=== PATIENT | male | born 1960 | race Caucasian/White ===

== ENCOUNTER 2019-04-25 05:30 | Inpatient (IN) | payer OTHER ==
[~2019-04-25 05:30] MED LIST: ACETAMINOPHEN 325 MG TABLET ONE; ACETAMINOPHEN 325 MG TABLET PO PRN; CEFAZOLIN SODIUM 2 GM in DEXTROSE 5%-WATER 100 ML IV PRN; CELECOXIB 200 MG CAPSULE ONE; CELECOXIB 200 MG CAPSULE PO PRN; GABAPENTIN 100 MG CAPSULE ONE; GABAPENTIN 100 MG CAPSULE PO PRN; LACTATED RINGERS 1000 ML IV PRN; LIDOCAINE 0.5% INJ-PF (5 MG/ML) 50 ML SDV SUBCUT PRN; ONDANSETRON HCL INJ/PF 4 MG/2 ML SDV IV PRN; ONDANSETRON HCL INJ/PF 4 MG/2 ML SDV ONE; OXYCODONE HCL SR 10 MG TABLET PO ONE; OXYCODONE HCL SR 10 MG TABLET PO PRN; SCOPOLAMINE HYDROBROMIDE 1.5 MG PATCH.TD72 TD PRN; TRAMADOL HCL 50 MG TABLET ONE; TRAMADOL HCL 50 MG TABLET PO PRN; TRANEXAMIC ACID INJ/PF 1,000 MG/10 ML SDV IV PRN; VANCOMYCIN HCL 1,000 MG in DEXTROSE 5%-WATER 250 ML IV PRN
[2019-04-25] MEDS ORDERED: EPINEPHRINE INJ/PF 1 MG/1 ML AMPULE ONE (06:23)
[2019-04-25] MEDS ORDERED: ONDANSETRON HCL INJ/PF 4 MG/2 ML SDV ONE (06:24)
[2019-04-25] MEDS ORDERED: FENTANYL CITRATE INJ/PF 100 MCG/2 ML AMPUL ONE (06:24)
[2019-04-25] MEDS ORDERED: PROPOFOL INJ 200 MG/20 ML VIAL IV ONE (06:24)
[2019-04-25] MEDS ORDERED: MIDAZOLAM 2 MG/2 ML INJ ONE (06:24)
[2019-04-25] MEDS ORDERED: LIDOCAINE 0.5% INJ-PF (5 MG/ML) 50 ML SDV ONE (06:25)
[2019-04-25] MEDS ORDERED: TRANEXAMIC ACID INJ/PF 1,000 MG/10 ML SDV ONE ×2 (06:29→10:14)
[2019-04-25] MEDS ORDERED: SCOPOLAMINE HYDROBROMIDE 1.5 MG PATCH.TD72 ONE (07:07)
[2019-04-25] MEDS ORDERED: VANCOMYCIN HCL INJ 1000 MG VIAL ONE (07:11)
[2019-04-25] MEDS ORDERED: BUPIVACAINE HCL 0.25 % INJ/PF (2.5 MG/1 ML) 30 ML VIAL ONE (07:11)
[2019-04-25] MEDS ORDERED: GENTAMICIN SULFATE INJ 80 MG/2 ML VIAL ONE (07:12)
[2019-04-25] MEDS ORDERED: BACITRACIN INJ 50,000 UNIT VIAL ONE (07:12)
[2019-04-25] MEDS ORDERED: KETOROLAC TROMETHAMINE 60 MG/2 ML SDV ONE (07:12)
[2019-04-25] MEDS ORDERED: MORPHINE SULFATE 10 MG/ML INJ ONE (07:17)
[2019-04-25] MEDS ORDERED: GENTAMICIN SULFATE INJ 80 MG/2 ML VIAL IV ONE (08:26)
[2019-04-25] MEDS ORDERED: BACITRACIN INJ 50,000 UNIT VIAL IR ONE (08:26)
[2019-04-25] MEDS ORDERED: VANCOMYCIN HCL INJ 1000 MG VIAL IV ONE (08:27)
[2019-04-25] MEDS ORDERED: KETOROLAC TROMETHAMINE INJ/PF 30 MG/1 ML SDV INJ ONE (08:28)
[2019-04-25] MEDS ORDERED: BUPIVACAINE HCL 0.25 % INJ/PF (2.5 MG/1 ML) 30 ML VIAL INJ ONE (08:28)
[2019-04-25] MEDS ORDERED: PROMETHAZINE HCL INJ 25 MG/1 ML VIAL IV PRN ×2 (08:30)
[2019-04-25] MEDS ORDERED: DIPHENHYDRAMINE HCL 50 MG/ML VIAL IV PRN (08:30)
[2019-04-25] MEDS ORDERED: ONDANSETRON HCL INJ/PF 4 MG/2 ML SDV IV PRN (08:30)
[2019-04-25] MEDS ORDERED: MORPHINE SULFATE 10 MG/ML INJ IV PRN (08:30)
[2019-04-25] MEDS ORDERED: DEXAMETHASONE SOD PHOS INJ 10 MG/1 ML VIAL ONE (10:14)
--- NOTE | 2019-04-25 10:20 | RADIOLOGY REPORT (SQ) ---
EXAM DESCRIPTION: PELVIS AP COMPLETED DATE/TIME: 04/25/2019 10:04 am REASON FOR STUDY: post op M16.11 UNILATERAL PRIMARY OSTEOARTHRITIS, RIGHT HIP M16.12 UNILATERAL [place] IMARY OSTEOARTHRITIS, LEFT HIP COMPARISON: None. NUMBER OF VIEWS: One view TECHNIQUE: AP Pelvis LIMITATIONS: None. FINDINGS: MINERALIZATION: Osteopenia. HIPS: Status post right ABHI; the hardware is in anatomic alignment. There is no periprosthetic fract ure. There is severe osteoarthrosis of the contralateral femoroacetabular joint. PELVIS AND SACRUM: Intact. PUBIS AND ISCHIUM: The ilioischial and iliopectineal lines are intact. There is no diastasis of the pubic symphysis. LOWER LUMBAR SPINE: Findings of degenerative spondylosis at L4-5 and L5-S1. SOFT TISSUES: The subcutaneous emphysema centered around the right ABHI is expected in the immediate p ostoperative period. OTHER: Phleboliths. IMPRESSION: Status post right ABHI with expected postoperative findings as detailed above. COMMENT: Pelvic fractures are often occult on plain radiographs. If strong clinical suspicion for f racture, recommend CT or MR. TECHNICAL DOCUMENTATION: JOB ID: [id number]- All Rights Reserved Reading location - IP/workstation name: [email or web address]
--- NOTE | 2019-04-25 10:58 | Operative Report ---
Operative Report DATE OF SURGERY: 04/25/19 PREOPERATIVE DIAGNOSIS: Right hip avascular necrosis POSTOPERATIVE DIAGNOSIS: Right hip avascular necrosis OPERATION: Right total hip arthroplasty SURGEON: DONALD DESOUZA JR ANESTHESIA: Spinal COMPLICATIONS: None ESTIMATED BLOOD LOSS: 150 cc PROCEDURE: BRIEF HISTORY: 58year old male with right hip avascular necrosis status post early collapse hip, which has failed conservative treatment and has elected for a total hip arthroplasty. He was having severe difficulty ambulating leading to loss of function, inability to perform ADLs, and a decreased quality of life due to his rapidly increasing dependence on assistive devices, now using a rolling walker. Risks include but are not limited to bleeding, infection, anesthesia, , injury to nerve or vessel, pain, scar, leg length inequality, dislocation, future surgery, and blood clots. Patient read through the pre-op counseling form and signed and solicited for surgery on their right hip. OPERATIVE PROCEDURE: Patient was brought to the operating room on and underwent spinal anesthesia. 2 grams of Ancef and 1 g vancomycin was given. After proper anesthesia was obtained, patient was positioned, padded, prepped, and draped in the usual sterile fashion on the operating room table. Appropriate time out was performed. A anterior approach to the hip was undertaken with meticulous hemostasis. The femoral neck was cut in line with the femoral broach and the femoral head was removed. The acetabulum was then exposed with three retractors in an atraumatic fashion. Soft tissue and osteophytes were removed. Medialization reaming was performed followed by anatomic reaming up to accept a 52 mm acetabulum. The 52 mm acetabulum was impacted into correct position and stability checked with Silvana test. A 36 standard liner was impacted into the shell with good stability. Potential impinging osteophytes were removed. Attention was then directed toward the femur, which was exposed with two retractors in an atraumatic fashion. corner cutter, lateralization rasping and then broaching up to accept a 17 femur. With a lateral offset neck and a standard head, stability was good in flexion and extension with equal leg lengths. The real 17 lateral offset femur was impacted into a copiously irrigated femoral canal. A 36 standard mm head was impacted on a clean dry femoral taper. The hip was irrigated and reduced, further irrigation with antibiotic solution, betadine solution, then antibiotic solution. Bleeders were coagulated with bovie cautery. 1 g of vancomycin powder was applied intra- articularly the fascia was then closed with number 2 Stratofix; the subcutaneous tissue closed with interrupted 2-0 Vicryl then running 3-0 monocryl subcuticular. Dermabond skin glue was applied followd by a silver dressing. All needle sponge and instrument counts were correct. Patient was awakened from sedation anesthesia and taken to recovery room in good condition. Thank you, Donald Desouza, DO
--- NOTE | 2019-04-25 11:43 | RADIOLOGY REPORT (SQ) ---
EXAM DESCRIPTION: HIP IN OPERATING RM; NO CHG FLUORO COMPLETED DATE/TIME: 04/25/2019 10:09 am REASON FOR STUDY: RIGHT HIP ARTHROPLASTY ASST WITH FLUORO IN OR M16.11 UNILATERAL PRIMARY OSTEOARTH RITIS, RIGHT HIP M16.12 UNILATERAL PRIMARY OSTEOARTHRITIS, LEFT HIP COMPARISON: None. FLUOROSCOPY TIME: Less than 0.1 minute. 2 images saved to PACS. TECHNIQUE: Intra-operative images acquired during surgical procedure to evaluate progress. NUMBER OF IMAGES: 2 images. LIMITATIONS: None. FINDINGS: Images of the hip acquired during procedure. IMPRESSION: IMAGE(S) OBTAINED DURING PROCEDURE. COMMENT: Quality ID [id number]: Final reports for procedures using fluoroscopy that document radiation exp osure indices, or exposure time and number of fluorographic images (if radiation exposure indices are not available) Please consult full operative report of the attending physician for description of the procedure. TECHNICAL DOCUMENTATION: JOB ID: [id number] [employer]- All Rights Reserved Reading location - IP/workstation name: [email or web address]
--- NOTE | 2019-04-25 11:43 | RADIOLOGY REPORT (SQ) ---
EXAM DESCRIPTION: HIP IN OPERATING RM; NO CHG FLUORO COMPLETED DATE/TIME: 04/25/2019 10:09 am REASON FOR STUDY: RIGHT HIP ARTHROPLASTY ASST WITH FLUORO IN OR M16.11 UNILATERAL PRIMARY OSTEOARTH RITIS, RIGHT HIP M16.12 UNILATERAL PRIMARY OSTEOARTHRITIS, LEFT HIP COMPARISON: None. FLUOROSCOPY TIME: Less than 0.1 minute. 2 images saved to PACS. TECHNIQUE: Intra-operative images acquired during surgical procedure to evaluate progress. NUMBER OF IMAGES: 2 images. LIMITATIONS: None. FINDINGS: Images of the hip acquired during procedure. IMPRESSION: IMAGE(S) OBTAINED DURING PROCEDURE. COMMENT: Quality ID 145: Final reports for procedures using fluoroscopy that document radiation exp osure indices, or exposure time and number of fluorographic images (if radiation exposure indices are not available) Please consult full operative report of the attending physician for description of the procedure. TECHNICAL DOCUMENTATION: JOB ID: [id number] [employer]- All Rights Reserved Reading location - IP/workstation name: [email or web address]
[2019-04-25] MEDS ORDERED: (PENDING PHARMACY ID) (Trazodone Hcl [Trazodone Hcl] 300 MG) PO PRN (15:21)
[2019-04-25] MEDS ORDERED: ALBUTEROL SULFATE HFA (90 MCG/PUFF) 200 PUFF/8.5 GM MDI IH PRN (15:21)
[2019-04-25] MEDS ORDERED: (PENDING PHARMACY ID) (Mometasone Furoate [Nasonex] 2 SPRAY) NAREB PRN (15:21)
[2019-04-25] MEDS ORDERED: MONTELUKAST SODIUM 10 MG TABLET PO PRN (15:21)
[2019-04-25] MEDS ORDERED: (PENDING PHARMACY ID) (Alprazolam [Alprazolam] 1 MG) PO PRN (15:21)
[2019-04-25] MEDS ORDERED: DEXTROSE 40% GEL 15 GM TUBE PO PRN ×2 (15:27)
[2019-04-25] MEDS ORDERED: DEXTROSE 50%-WATER 25 GM/50 ML DISP.SYRIN IV PRN ×2 (15:27)
[2019-04-25] MEDS ORDERED: GLUCAGON,HUMAN RECOMB 1 MG INJ IM PRN (15:27)
--- NOTE | 2019-04-25 15:27 | PDOC CONSULTATION ---
Consultation Consult Date: 04/25/19 Attending physician:: LAUREN DESOUZA JR Provider Consulted: MITESH ZAZUETA JR Consult reason:: Medical management, pre and post operatively History of Present Illness Admission Date/PCP: 04/25/19 05:30 CHAYO LUNA MD History of Present Illness: JEFRY CORLEY is a 58 year old male who we were consulted on for medical management. Patient had a right total hip arthroplasty today secondary to avascular necrosis. Patient is scheduled to have his left hip done in 48 hours for the same diagnosis. Patient states that in May 2018 he started having back pain and what he thought was "sciatica". Patient underwent epidural lumbar injections for degenerative disc disease and back pain. Somewhere along the way recently within the last 30 days or so x-rays revealed his hips, and it was determined that he had bilateral avascular necrosis. This may have even been done on the basketball scout film or during a CT-guided procedure, where the hip was visualized. He was brought into the hospital today by orthopedics where he underwent a right total hip arthroplasty with good success. As stated above patient is scheduled for his left hip to be done on 48 hours from now.. Patient has returned from surgery back in his room with his fiance. Patient is sitting up in bed eating lunch appears to be in no distress. Patient states his only other medical history involves hyperlipidemia. However in reviewing his chart and his home medications, appears as though he is on medicine for either anxiety and/or depression. He denies diabetes, hypertension, coronary artery disease, [place]. States he does not smoke cigarettes and only rarely drinks alcohol. Past Medical History Cardiac Medical History: Reports: Hyperlipidema Denies: Atrial Fibrillation, Congestive Heart Failure, Coronary Artery Disease, Myocardial Infarction, Hypertension, Peripheral Vascular Disease, Pulmonary Embolism, Heart Murmur Pulmonary Medical History: Reports: Chronic Obstructive Pulmonary Disease (COPD) Denies: Asthma, Bronchitis, Pneumonia, Respiratory Failure, Sleep Apnea, Tuberculosis Neurological Medical History: Denies: Seizures Endocrine Medical History: Denies: Hyperthyroidism, Hypothyroidism Renal/ Medical History: Denies: End Stage Renal Disease Malignancy Medical History: Denies: Lung Cancer GI Medical History: Reports: Gastroesophageal Reflux Disease Denies: Crohn's Disease, Hiatal Hernia Musculoskeltal Medical History: Reports: Arthritis Denies: Fibromyalgia Psychiatric Medical History: Reports: Depression Denies: Bipolar Disorder, Post Traumatic Stress Disorder Hematology: Denies: Anemia Past Surgical History Past Surgical History: Reports: Herniorrhaphy Denies: Appendectomy, Cholecystectomy, Colostomy, Coronary Artery Bypass Graft, Gastric Bypass Surgery, Pacemaker, Tonsillectomy Social History Smoking Status: Former Smoker Hx Recreational Drug Use: No Hx Prescription Drug Abuse: No - Advance Directive Resuscitation Status: Full Code Family History Parental Family History Reviewed: No Children Family History Reviewed: No Sibling(s) Family History Reviewed.: No Medication/Allergy Home Medications: Albuterol Sulfate [Proair HFA Inhalation Aerosol 8.5 gm MDI] 2 puff IN QIDP PRN 04/18/19 Alprazolam 1 mg PO Q8HP PRN 04/18/19 Atorvastatin Calcium [Lipitor 80 mg Tablet] 80 mg PO DAILY 04/18/19 Bupropion HCl [Wellbutrin Xl 300mg 24hr Tablet] 300 mg PO DAILY 04/18/19 Montelukast Sodium [Singulair] 10 mg PO HSP PRN 04/18/19 Tamsulosin HCl [Flomax] 0.4 mg PO DAILYP PRN 04/18/19 Trazodone HCl 300 mg PO HSP PRN 04/18/19 Buprenorphine HCl [Belbuca] 300 mcg BUCCAL DAILY 04/19/19 Cholecalciferol (Vitamin D3) [Vitamin D3 2000 unit Tablet] 2,000 unit PO DAILY 04/19/19 Clobetasol Propionate [Temovate 0.05% Cream 15 gm] 1 dose TOP BID 04/19/19 Diclofenac Sodium [Diclofenac Sodium ER] 100 mg PO DAILYP PRN 04/19/19 Lidocaine [Lidoderm 5% (700 mg) Transdermal Patch] 1 patch TOP DAILYP PRN 04/19/19 Mometasone Furoate [Nasonex] 2 spray NAREB DAILYP PRN 04/19/19 Naltrexone HCl/Bupropion HCl [Contrave ER 8-90 mg Tablet] 8 - 90 mg PO DAILY 04/19/19 Naproxen [Naprosyn] 500 mg PO BIDP PRN 04/19/19 [place]-3 Fatty Acids/Fish Oil [Fish Oil 1,000 mg Capsule] 1,000 mg PO DAILY 04/19/19 Tadalafil [Cialis] 5 mg PO DAILY 04/19/19 Tapentadol HCl [Nucynta] 100 mg PO Q8HP PRN 04/25/19 Allergies/Adverse Reactions: fentanyl Allergy (Verified 04/25/19 06:37) Hallucinations Review of Systems Constitutional: ABSENT: chills, fever(s), headache(s), weight gain, weight loss Cardiovascular: ABSENT: chest pain, dyspnea on exertion, edema, orthropnea, palpitations Respiratory: ABSENT: cough, hemoptysis Neurological: ABSENT: abnormal gait, abnormal speech, confusion, dizziness, focal weakness, syncope Psychiatric: ABSENT: anxiety, depression, homidical ideation, suicidal ideation Physical Exam Vital Signs: Temp Pulse Resp BP Pulse Ox 97.2 F 62 18 117/74 97 04/25/19 13:53 04/25/19 13:53 04/25/19 13:53 04/25/19 13:53 04/25/19 13:53 Intake & Output 04/24/19 04/25/19 04/26/19 06:59 06:59 06:59 Intake Total 0 2200 Output Total 75 Balance 0 2125 General appearance: PRESENT: no acute distress, well-developed, well-nourished, other - Sitting up in bed eating a sandwich with no complaints Respiratory exam: PRESENT: clear to auscultation trip. ABSENT: rales, rhonchi, wheezes Cardiovascular exam: PRESENT: RRR. ABSENT: diastolic murmur, rubs, systolic murmur Extremities exam: PRESENT: other - Deferred to orthopedics Neurological exam: PRESENT: alert, awake, oriented to person, oriented to place, oriented to time, oriented to situation Psychiatric exam: PRESENT: appropriate affect, normal mood. ABSENT: homicidal ideation, suicidal ideation Results Laboratory Results: 04/25/19 06:15 Blood Type A NEGATIVE Antibody Screen NEGATIVE Impressions: Fluoroscopy 04/25/19 00:00 IMPRESSION: IMAGE(S) OBTAINED DURING PROCEDURE. Hip X-Ray 04/25/19 00:00 IMPRESSION: IMAGE(S) OBTAINED DURING PROCEDURE. Pelvis X-Ray 04/25/19 00:00 IMPRESSION: Status post right ABHI with expected postoperative findings as detailed above. Assessment and Plan - Diagnosis (1) Avascular necrosis of bones of both hips Is this a current diagnosis for this admission?: Yes (2) History of total right hip arthroplasty Is this a current diagnosis for this admission?: Yes (3) Mixed anxiety and depressive disorder Is this a current diagnosis for this admission?: Yes (4) Hyperlipidemia Is this a current diagnosis for this admission?: Yes - Plan Summary Summary: 04/25/2019 I have ordered his medications for anxiety and depression to be given, as these medicines should not be stopped abruptly. And I do not think they will interfere with his surgical care. I did hold his pain medications as well as his Flomax, as I think the surgeon should treat his pain and add as needed basis, and temporarily we can control his blood pressure with the PRN dosage of hydralazine. I have also held his nonsteroidal anti-inflammatory drugs due to the slight chance of increased bleeding postop. I will prophylactically add a insulin sliding scale regimen as well as a blood pressure parameter regimen. Thank you for this consult - Time Time Spent with patient: 35 or more minutes
[2019-04-25] MEDS ORDERED: HYDRALAZINE HCL INJ/PF 20 MG/1 ML SDV IV PRN (15:28)
[2019-04-25] MEDS ORDERED: ALPRAZOLAM 0.5 MG TABLET PO PRN (15:33)
[2019-04-25] MEDS ORDERED: FLUTICASONE NASAL SPRAY 50 MCG/SPRY 120 SPRAY/16 GM NAREB PRN (15:36)
[2019-04-25] MEDS ORDERED: OXYCODONE HCL IR 5 MG TABLET PO PRN ×2 (17:53→17:54)
[2019-04-25] MEDS ORDERED: TRAMADOL HCL 50 MG TABLET PO PRN (17:55)
[2019-04-25] MEDS ORDERED: ZOLPIDEM TARTRATE 5 MG TABLET PO PRN (17:58)
[2019-04-25] MEDS ORDERED: DIPHENHYDRAMINE HCL 25 MG CAPSULE PO PRN (17:58)
[2019-04-25] MEDS ORDERED: BUPROPION HCL 75 MG TABLET PO SCH (18:00)
[2019-04-25] MEDS ORDERED: CLOBETASOL PROPIONATE 0.05% CREAM 15 GM TOP SCH (18:00)
[2019-04-25] MEDS ORDERED: DOCUSATE SODIUM 100 MG CAPSULE PO PRN (18:01)
[2019-04-25] MEDS ORDERED: ONDANSETRON 4 MG TAB.RAPDIS PO PRN (18:02)
[2019-04-25] MEDS ORDERED: PANTOPRAZOLE SODIUM 20 MG TABLET.DR PO ONE (18:30)
[2019-04-25] MEDS: INSULIN LISPRO 100 UNIT/ML 3 ML VIAL SUBCUT SCH ×2 (18:51→21:40)
[2019-04-25] MEDS: CEFAZOLIN SODIUM 2 GM in DEXTROSE 5%-WATER 100 ML IV SCH (21:37)
[2019-04-25] MEDS: GABAPENTIN 100 MG CAPSULE PO SCH (21:41)
[2019-04-25] MEDS: ACETAMINOPHEN 325 MG TABLET PO SCH (21:42)
[2019-04-25] MEDS: KETOROLAC TROMETHAMINE INJ/PF 30 MG/1 ML SDV IV SCH (21:42)
[2019-04-25] MEDS: ATORVASTATIN CALCIUM 80 MG TABLET PO SCH (21:43)
[2019-04-25] MEDS: MORPHINE SULFATE 10 MG/ML INJ IV PRN (22:39)
[2019-04-25] MEDS: NORMAL SALINE 1000 ML 1,000 ML IV PRN (22:43)
[2019-04-26] MEDS: MORPHINE SULFATE 10 MG/ML INJ IV PRN (03:04)
[2019-04-26] MEDS: KETOROLAC TROMETHAMINE INJ/PF 30 MG/1 ML SDV IV SCH ×3 (06:00→21:39)
[2019-04-26] MEDS: ACETAMINOPHEN 325 MG TABLET PO SCH ×3 (06:00→21:38)
[2019-04-26] MEDS: CEFAZOLIN SODIUM 2 GM in DEXTROSE 5%-WATER 100 ML IV SCH (06:00)
[2019-04-26] MEDS ORDERED: DEXAMETHASONE SOD PHOS INJ 10 MG/1 ML VIAL IV ONE (08:00)
--- NOTE | 2019-04-26 08:06 | PDOC PROGRESS REPORT ---
Subjective Progress Note for:: 04/26/19 Subjective:: He is doing well this AM but does report pain. Pain was controlled until last night and has progressed. There was an issue with his medication orders being implemented by pharmacy that has been addressed this AM. He is doing well otherwise without new symptoms or event overnight. Reason For Visit: UNILATERAL PRIMARY OSTEOARTHRITIS, RIGHT HIP Physical Exam Vital Signs: Temp Pulse Resp BP Pulse Ox 98.0 F 78 17 121/76 99 04/25/19 22:00 04/25/19 22:00 04/25/19 22:00 04/25/19 22:00 04/25/19 22:00 Intake & Output 04/25/19 04/26/19 04/27/19 06:59 06:59 06:59 Intake Total 0 3290 Output Total 1175 Balance 0 2115 Physical Exam: General appearance: PRESENT: no acute distress, cooperative, well-nourished Head exam: PRESENT: atraumatic, normocephalic Eye exam: PRESENT: EOMI Ear exam: PRESENT: normal external ear exam Mouth exam: PRESENT: neck supple Neck exam: ABSENT: tracheal deviation Respiratory exam: PRESENT: symmetrical, unlabored. ABSENT: accessory muscle use, wheezes Pulses: PRESENT: normal radial pulses, normal dorsalis pedis pul Vascular exam: PRESENT: normal capillary refill GI/Abdominal exam: ABSENT: distended, firm Extremities exam: PRESENT: full ROM of bilateral shoulders, elbows wrists, knees, hips and ankles without pain Musculoskeletal exam: PRESENT: full ROM, normal inspection of all 4 extremities aside from that noted below. Neurological exam: PRESENT: alert, awake, oriented to person, oriented to place, oriented to time Psychiatric exam: PRESENT: appropriate affect. ABSENT: agitated Focused psych exam: ABSENT: catatonic Skin exam: PRESENT: intact. ABSENT: dry All as above aside from that noted in the HPI and the following: RIght lower extremity -Pulses 2+ distally -Compartments soft -Wound clean dry and intact no drainage in appropriate swelling for postop day -Sensation grossly intact to L3-4-5 S1 -Motor grossly intact to EHL TA gastroc and quad - Able to perform quad extension and elevate heel off of bed. Results Impressions: Fluoroscopy 04/25/19 00:00 IMPRESSION: IMAGE(S) OBTAINED DURING PROCEDURE. Hip X-Ray 04/25/19 00:00 IMPRESSION: IMAGE(S) OBTAINED DURING PROCEDURE. Pelvis X-Ray 04/25/19 00:00 IMPRESSION: Status post right ABHI with expected postoperative findings as detailed above. Assessment & Plan - Diagnosis (1) Avascular necrosis of bones of both hips Is this a current diagnosis for this admission?: Yes (2) History of total right hip arthroplasty Is this a current diagnosis for this admission?: Yes Plan: - Due to the severity of pre-operative pain and the rapid progression of his hip disease and debility, we are planning for left ABHI tomorrow. - I greatly appreciate medicine recommendations. He did have elevated blood glucose likely due to stress response, pain, and post op dose of decadron. Will hold insulin sliding scale for now. - Will order H/H for eval prior to OR tomorrow - NPO at midnight tonight. - Recommend 2 doses of Ancef postoperatively q 8 hours to complete 24 hours perioperatively -Weightbearing as tolerated, no precautions, encourage out of bed EMANUEL for ADL training - PT/OT -Recommend aspirin 325 daily for DVT prophylaxis for 6 weeks -Recommend multimodal pain management to avoid excessive narcotics, including gabapentin, tramadol, Toradol, acetaminophen. - Dressing should not be removed for 7 to 10 days until seen in the office -May shower with the dressing intact, if it starts to come off she should not get the incision wet. -I would like to follow the patient my office within the next 7 to [address] [place] [address]. in [place] office #: [phone] - Time Time Spent with patient: Less than 15 minutes
[2019-04-26 08:29] LABS: ABSOLUTE LYMPHOCYTES (AUTO) 1.5 10^3/uL (0.5-4.7); ABSOLUTE MONOCYTES (AUTO) 0.8 10^3/uL (0.1-1.4); ABSOLUTE NEUT (AUTO) 7.9 10^3/uL (1.7-8.2); BASOPHILS % (AUTO) 0.4 % (0-2); EOSINOPHILS % (AUTO) 0.1 % (0-6); HEMATOCRIT 35.5 % (37.9-51.0); LYMPHOCYTES % (AUTO) 14.4 % (13-45); MEAN CORPUSCULAR HEMOGLOBIN 28.9 pg (27.0-33.4); MEAN CORPUSCULAR HGB CONC 33.7 g/dL (32.0-36.0); MEAN CORPUSCULAR VOLUME 86 fl (80-97); MONOCYTES % (AUTO) 7.4 % (3-13); PLATELET COUNT 226 10^3/uL (150-450); RED BLOOD COUNT 4.14 10^6/uL (4.35-5.55); RED CELL DISTRIBUTION WIDTH 14.2 % (11.5-14.0); SEGMENTED NEUTROPHILS % (AUTO) 77.7 % (42-78); TOTAL CELLS COUNTED % (AUTO) 100 %; WHITE BLOOD COUNT 10.2 10^3/uL (4.0-10.5)
[2019-04-26] MEDS: INSULIN LISPRO 100 UNIT/ML 3 ML VIAL SUBCUT SCH ×3 (08:41→16:00)
[2019-04-26] MEDS: HYDROMORPHONE HCL 2 MG TABLET PO PRN ×2 (08:56→20:05)
[2019-04-26 09:00] LABS: ALBUMIN 3.1 g/dL (3.5-5.0); ALKALINE PHOSPHATASE 73 U/L (38-126); ANION GAP 8 (5-19); ASPARTATE AMINO TRANSFERASE 22 U/L (17-59); BILIRUBIN,DIRECT 0.1 mg/dL (0.0-0.4); BILIRUBIN,TOTAL 0.3 mg/dL (0.2-1.3); BLOOD UREA NITROGEN 11 mg/dL (7-20); CALCIUM 9.1 mg/dL (8.4-10.2); CARBON DIOXIDE 28 mmol/L (22-30); CHLORIDE 102 mmol/L (98-107); GLUCOSE 129 mg/dL (75-110); POTASSIUM 4.3 mmol/L (3.6-5.0); TOTAL PROTEIN 5.9 g/dL (6.3-8.2)
[2019-04-26] MEDS ORDERED: (PENDING PHARMACY ID) (Cholecalciferol (Vitamin D3) [Vitamin D3 2000 Unit Tablet] 2,000 UN PO SCH (10:00)
--- NOTE | 2019-04-26 10:20 | PDOC PROGRESS REPORT ---
Subjective Progress Note for:: 04/26/19 Reason For Visit: UNILATERAL PRIMARY OSTEOARTHRITIS, RIGHT HIP 04/26/2019 Lateral avascular necrosis with a completed right hip revision and scheduled left hip for tomorrow Physical Exam Vital Signs: Temp Pulse Resp BP Pulse Ox 98.1 F 80 14 101/61 96 04/26/19 07:39 04/26/19 07:39 04/26/19 07:39 04/26/19 07:39 04/26/19 07:39 Intake & Output 04/25/19 04/26/19 04/27/19 06:59 06:59 06:59 Intake Total 0 3290 Output Total 1175 Balance 0 2115 General appearance: PRESENT: no acute distress, other - Sitting up in a chair at bedside, speaking in full sentences Respiratory exam: PRESENT: clear to auscultation trip. ABSENT: rales, rhonchi, wheezes Cardiovascular exam: PRESENT: RRR. ABSENT: diastolic murmur, rubs, systolic murmur Neurological exam: PRESENT: alert, awake, oriented to person, oriented to place, oriented to time, oriented to situation Psychiatric exam: PRESENT: appropriate affect, normal mood. ABSENT: homicidal ideation, suicidal ideation Results Laboratory Results: 04/26/19 08:05 04/26/19 08:05 04/26/19 04/26/19 08:05 08:05 WBC 10.2 RBC 4.14 L Hgb 12.0 L Hct 35.5 L MCV 86 MCH 28.9 MCHC 33.7 RDW 14.2 H Plt Count 226 Seg Neutrophils % 77.7 Sodium 138.3 Potassium 4.3 Chloride 102 Carbon Dioxide 28 Anion Gap 8 BUN 11 Creatinine 0.84 Est GFR ( Amer) > 60 Glucose 129 H Calcium 9.1 Total Bilirubin 0.3 AST 22 Alkaline Phosphatase 73 Total Protein 5.9 L Albumin 3.1 L Impressions: Fluoroscopy 04/25/19 00:00 IMPRESSION: IMAGE(S) OBTAINED DURING PROCEDURE. Hip X-Ray 04/25/19 00:00 IMPRESSION: IMAGE(S) OBTAINED DURING PROCEDURE. Pelvis X-Ray 04/25/19 00:00 IMPRESSION: Status post right ABHI with expected postoperative findings as detailed above. Assessment and Plan - Diagnosis (1) Avascular necrosis of bones of both hips Is this a current diagnosis for this admission?: Yes (2) History of total right hip arthroplasty Is this a current diagnosis for this admission?: Yes (3) Mixed anxiety and depressive disorder Is this a current diagnosis for this admission?: Yes (4) Hyperlipidemia Is this a current diagnosis for this admission?: Yes - Plan Summary Summary: 04/25/2019 I have ordered his medications for anxiety and depression to be given, as these medicines should not be stopped abruptly. And I do not think they will interfere with his surgical care. I did hold his pain medications as well as his Flomax, as I think the surgeon should treat his pain and add as needed basis, and temporarily we can control his blood pressure with the PRN dosage of hydralazine. I have also held his nonsteroidal anti-inflammatory drugs due to the slight chance of increased bleeding postop. I will prophylactically add a insulin sliding scale regimen as well as a blood pressure parameter regimen. Thank you for this consult 04/26/2019 Patient is medically stable temperature 98.1 pulse of 80 blood pressure 101/61 O2 sat 96% on room air Pain this morning is a 2/5. Had some postoperative pain last night as to be expected but this is being managed Labs all appear stable Anticipate no delays with surgery tomorrow - Time Time Spent with patient: 15-24 minutes
[2019-04-26] MEDS: POLYETHYLENE GLYCOL 3350 POWDER 17 GM/1 PACKET PO SCH (11:06)
[2019-04-26] MEDS: ASPIRIN 325 MG TABLET PO SCH (11:06)
[2019-04-26] MEDS: CHOLECALCIFEROL (D3) 1,000 UNIT (25 MCG) TABLET PO SCH (11:07)
[2019-04-26] MEDS: GABAPENTIN 100 MG CAPSULE PO SCH ×2 (11:07→21:39)
[2019-04-26] MEDS: BUPROPION HCL 75 MG TABLET PO SCH (11:08)
[2019-04-26] MEDS: CELECOXIB 200 MG CAPSULE PO SCH (11:11)
[2019-04-26] MEDS ORDERED: MAGNESIUM HYDROXIDE SUSP 30 ML UDCUP PO PRN (17:21)
[2019-04-26] MEDS ORDERED: MAG HYDROX/AL HYDROX/SIMETH SUSP 30 ML UDCUP PO PRN (18:38)
[2019-04-26] MEDS: ATORVASTATIN CALCIUM 80 MG TABLET PO SCH (21:38)
[2019-04-27] MEDS: TRAZODONE HCL 50 MG TABLET PO PRN (00:43)
[2019-04-27] MEDS: NORMAL SALINE 1000 ML 1,000 ML IV PRN ×3 (05:53→21:34)
[2019-04-27] MEDS: ACETAMINOPHEN 325 MG TABLET PO SCH ×3 (06:30→21:29)
[2019-04-27] MEDS ORDERED: GENTAMICIN SULFATE INJ 80 MG/2 ML VIAL ONE (07:34)
[2019-04-27] MEDS ORDERED: VANCOMYCIN HCL INJ 1000 MG VIAL ONE (07:34)
[2019-04-27] MEDS ORDERED: BUPIVACAINE HCL 0.25 % INJ/PF (2.5 MG/1 ML) 30 ML VIAL ONE (07:35)
[2019-04-27] MEDS ORDERED: BACITRACIN INJ 50,000 UNIT VIAL ONE (07:35)
[2019-04-27] MEDS ORDERED: DEXAMETHASONE SOD PHOSPHATE INJ 4 MG/1 ML VIAL ONE (08:00)
[2019-04-27] MEDS ORDERED: PHENYLEPHRINE HCL INJ/PF 10 MG/1 ML SDV ONE (08:00)
[2019-04-27] MEDS ORDERED: ONDANSETRON HCL INJ/PF 4 MG/2 ML SDV ONE (08:00)
[2019-04-27] MEDS ORDERED: MIDAZOLAM 2 MG/2 ML INJ ONE (08:11)
[2019-04-27] MEDS ORDERED: FENTANYL CITRATE INJ/PF 250 MCG/5 ML AMPULE ONE (08:11)
[2019-04-27] MEDS ORDERED: PROPOFOL INJ 200 MG/20 ML VIAL IV ONE ×3 (08:12→11:49)
[2019-04-27] MEDS ORDERED: EPINEPHRINE INJ/PF 1 MG/1 ML AMPULE ONE (08:17)
[2019-04-27] MEDS ORDERED: VANCOMYCIN HCL INJ 500 MG VIAL ONE (08:46)
[2019-04-27] MEDS ORDERED: CEFAZOLIN INJ 1 GM VIAL ONE (08:46)
[2019-04-27] MEDS ORDERED: OXYCODONE HCL SR 10 MG TABLET PO ONE (08:46)
[2019-04-27] MEDS ORDERED: TRANEXAMIC ACID INJ/PF 1,000 MG/10 ML SDV ONE (08:47)
[2019-04-27] MEDS ORDERED: ACETAMINOPHEN 325 MG TABLET ONE (08:48)
[2019-04-27] MEDS ORDERED: TRAMADOL HCL 50 MG TABLET ONE (08:48)
[2019-04-27] MEDS ORDERED: CELECOXIB 200 MG CAPSULE ONE (08:48)
[2019-04-27] MEDS ORDERED: GABAPENTIN 100 MG CAPSULE ONE (08:48)
[2019-04-27] MEDS: GABAPENTIN 100 MG CAPSULE PO SCH ×2 (08:59→21:29)
[2019-04-27] MEDS: POLYETHYLENE GLYCOL 3350 POWDER 17 GM/1 PACKET PO SCH (08:59)
[2019-04-27] MEDS: CHOLECALCIFEROL (D3) 1,000 UNIT (25 MCG) TABLET PO SCH (08:59)
[2019-04-27] MEDS: CELECOXIB 200 MG CAPSULE PO SCH (08:59)
[2019-04-27] MEDS: BUPROPION HCL 75 MG TABLET PO SCH (08:59)
[2019-04-27] MEDS: ASPIRIN 325 MG TABLET PO SCH (08:59)
[2019-04-27] MEDS ORDERED: OXYCODONE HCL IR 5 MG TABLET PO PRN ×4 (09:26→10:00)
[2019-04-27] MEDS ORDERED: MORPHINE SULFATE 10 MG/ML INJ IV PRN ×3 (09:30→10:19)
--- NOTE | 2019-04-27 09:36 | PDOC PROGRESS REPORT ---
Subjective Progress Note for:: 04/27/19 Reason For Visit: UNILATERAL PRIMARY OSTEOARTHRITIS, RIGHT HIP 04/27/2019 Patient going down to the OR this morning for left hip arthroplasty Physical Exam Vital Signs: Temp Pulse Resp BP Pulse Ox 98.8 F 68 14 132/69 H 95 04/27/19 07:21 04/27/19 07:21 04/27/19 07:21 04/27/19 07:21 04/27/19 07:21 Intake & Output 04/26/19 04/27/19 04/28/19 06:59 06:59 06:59 Intake Total 3290 2340 Output Total 1175 400 Balance 211 1940 Weight 78.9 kg General appearance: PRESENT: no acute distress Respiratory exam: PRESENT: clear to auscultation trip. ABSENT: rales, rhonchi, wheezes Cardiovascular exam: PRESENT: RRR. ABSENT: diastolic murmur, rubs, systolic murmur Neurological exam: PRESENT: altered, other - Due to preop medication Psychiatric exam: PRESENT: appropriate affect, normal mood. ABSENT: homicidal ideation, suicidal ideation Results Laboratory Results: 04/26/19 08:05 04/26/19 08:05 Impressions: Fluoroscopy 04/25/19 00:00 IMPRESSION: IMAGE(S) OBTAINED DURING PROCEDURE. Hip X-Ray 04/25/19 00:00 IMPRESSION: IMAGE(S) OBTAINED DURING PROCEDURE. Pelvis X-Ray 04/25/19 00:00 IMPRESSION: Status post right ABHI with expected postoperative findings as detailed above. Assessment and Plan - Diagnosis (1) Avascular necrosis of bones of both hips Is this a current diagnosis for this admission?: Yes (2) History of total right hip arthroplasty Is this a current diagnosis for this admission?: Yes (3) Mixed anxiety and depressive disorder Is this a current diagnosis for this admission?: Yes (4) Hyperlipidemia Is this a current diagnosis for this admission?: Yes - Plan Summary Summary: 04/25/2019 I have ordered his medications for anxiety and depression to be given, as these medicines should not be stopped abruptly. And I do not think they will interfere with his surgical care. I did hold his pain medications as well as his Flomax, as I think the surgeon should treat his pain and add as needed basis, and temporarily we can control his blood pressure with the PRN dosage of hydralazine. I have also held his nonsteroidal anti-inflammatory drugs due to the slight chance of increased bleeding postop. I will prophylactically add a insulin sliding scale regimen as well as a blood pressure parameter regimen. Thank you for this consult 04/26/2019 Patient is medically stable temperature 98.1 pulse of 80 blood pressure 101/61 O2 sat 96% on room air Pain this morning is a 2/5. Had some postoperative pain last night as to be expected but this is being managed Labs all appear stable Anticipate no delays with surgery tomorrow 04/27/2019 Vital signs were stable throughout the night Patient's CBC and chemistry panel are normal Will follow patient postop for any changes - Time Time Spent with patient: 15-24 minutes
[2019-04-27] MEDS ORDERED: TRANEXAMIC ACID INJ/PF 1,000 MG/10 ML SDV IV PRN (09:57)
[2019-04-27] MEDS ORDERED: DEXAMETHASONE SOD PHOS INJ 10 MG/1 ML VIAL IV PRN (09:58)
[2019-04-27] MEDS ORDERED: DIPHENHYDRAMINE HCL 50 MG/ML VIAL IV PRN (10:19)
[2019-04-27] MEDS ORDERED: PROMETHAZINE HCL INJ 25 MG/1 ML VIAL IV PRN (10:19)
[2019-04-27] MEDS ORDERED: MEPERIDINE HCL/PF INJ 25 MG/1 ML DISP.SYRIN IV PRN (10:19)
[2019-04-27] MEDS ORDERED: HYDROMORPHONE HCL INJ/PF 2 MG/ML AMPULE ONE (11:48)
--- NOTE | 2019-04-27 12:39 | Operative Report ---
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 OPERATION: Left total hip arthroplasty with cables for intraoperative fracture t reatment. SURGEON: DONALD DESOUZA JR ANESTHESIA: Spinal COMPLICATIONS: Intraoperative left hip fracture. ESTIMATED BLOOD LOSS: 400 cc INTRAOPERATIVE FINDINGS: It was appreciated this femoral head had overt collapse, and potential shortening and overall laxity as in comparison to the opposite side PROCEDURE: BRIEF HISTORY: 58year old male with severe avascular necrosis of the left hip status post collapse, which has failed conservative treatment and has elected for a total hip arthroplasty. Risks include but are not limited to bleeding, infection, anesthesia, , injury to nerve or vessel, pain, scar, leg length inequality, dislocation, future surgery, and blood clots. Patient read through the pre-op counseling form and signed and solicited for surgery on their left hip. OPERATIVE PROCEDURE: Patient was brought to the operating room on and underwent spinal anesthesia. 2 grams of Ancef and 1 g vancomycin was given. After proper anesthesia was obtained, patient was positioned, padded, prepped, and draped in the usual sterile fashion on the operating room table. Appropriate time out was performed. A anterior approach to the hip was undertaken with meticulous hemostasis. The femoral neck was cut in line with the femoral broach and the femoral head was removed. The acetabulum was then exposed with three retractors in an atraumatic fashion. Soft tissue and osteophytes were removed. Medialization reaming was performed followed by anatomic reaming up to accept a 52 mm acetabulum. The 52 mm acetabulum was impacted into correct position and stability checked with Silvana test. A standard 36 liner was impacted into the sh ell with good stability. Potential impinging osteophytes were removed. Attention was then directed toward the femur, which was exposed with two retractors in an atraumatic fashion. upper cutter machine, lateralization rasping and then broaching up to accept a 17 femur. With a lateral offset neck and a +3 head, stability was good in flexion and extension with equal leg lengths. This was checked with fluoroscopy that confirmed proper positioning and fit of the implants, without any signs of fracture. The real lateral offset femur was impacted into a copiously irrigated femoral canal. However at this time we appreciated that the final stem sat deeper than the broach. The stem was then removed and the calcar as well as the canal were thoroughly inspected and no fracture was appreciated. At that point we broached up to a 20 broach. However this still failed to maintain stability and so we checked the placement of the broach under fluoroscopy. At this point a fracture along the lateral border of the femur was appreciated. We remove the broach and placed 2 cables up at more than 100 pounds of pressure. The 17 broach was then applied again and nearly fit but an 18 broach was more appropriate. We then trialed and found the +3 head size to be appropriate. Again we thoroughly irrigated and cleaned the wound and the final stem and head were impacted. Unfortunately, though the hip was borderline stable, we failed to achieve the stability desired. The ball was removed from the head and the acetabulum was addressed. Review of the acetabulum x-rays revealed that it was in an ideal position and so the decision was made to remove the liner. A lipped liner was placed with the lip in the anterior lateral position. The trunnion was irrigated and cleaned as well as the interior of the ball this was re-impacted and reduced. [place] stability at this point was achieved. His leg lengths at this point were approximately 3 mm long on the left, which we deemed adequate given the increased difficulty of this case, and our overall challenge with stability. A final x-ray was then taken and confirmed a good position. Further irrigation with antibiotic solution, betadine solution, then antibiotic solution. Bleeders were coagulated with bovie cautery. The fascia was then closed with number 0 Stratofix, that was initially applied to the fascia and then run through the subdermal tissue. A running 3-0 monocryl was utilized subcuticular. Dermabond skin glue was applied followd by non-tension zip type dressing followed by Acticoat followed by an occlusive dressing. All needle sponge and instrument counts were correct. Patient was awakened from sedation anesthesia and taken to recovery room in good condition. Thank you, Donald Desouza, DO
[2019-04-27] MEDS ORDERED: PANTOPRAZOLE SODIUM 20 MG TABLET.DR PO ONE (14:00)
--- NOTE | 2019-04-27 14:10 | RADIOLOGY REPORT (SQ) ---
EXAM DESCRIPTION: PELVIS AP COMPLETED DATE/TIME: 04/27/2019 1:03 pm REASON FOR STUDY: Post op M16.11 UNILATERAL PRIMARY OSTEOARTHRITIS, RIGHT HIP M16.12 UNILATERAL [place] IMARY OSTEOARTHRITIS, LEFT HIP COMPARISON: AP pelvis 04/25/2019 NUMBER OF VIEWS: One view TECHNIQUE: Digital radiographic images of the pelvis post-procedure LIMITATIONS: None. FINDINGS: BONES: No worrisome or unexpected findings post-procedure. DEVICE: Left hip replacement in good positioning. Cerclage wires are present around the proximal lef t femur. Acetabular component in good alignment. Right hip replacement in good alignment. SOFT TISSUES: No worrisome findings. Expected postoperative soft tissue changes bilaterally. IMPRESSION: SATISFACTORY POSTOPERATIVE PELVIS. TECHNICAL DOCUMENTATION: JOB ID: [id number] [employer] [place]- All Rights Reserved Reading location - IP/workstation name: [email or web address]
[2019-04-27] MEDS: HYDROMORPHONE HCL 2 MG TABLET PO PRN ×3 (14:26→22:47)
[2019-04-27] MEDS: KETOROLAC TROMETHAMINE INJ/PF 30 MG/1 ML SDV IV SCH ×2 (14:27→21:30)
--- NOTE | 2019-04-27 14:48 | RADIOLOGY REPORT (SQ) ---
EXAM DESCRIPTION: HIP IN OPERATING RM; NO CHG FLUORO COMPLETED DATE/TIME: 04/27/2019 2:40 pm REASON FOR STUDY: LEFT HIP ARTHROPLASTY ASST WITH FLUORO IN OR M16.11 UNILATERAL PRIMARY OSTEOARTHR ITIS, RIGHT HIP M16.12 UNILATERAL PRIMARY OSTEOARTHRITIS, LEFT HIP COMPARISON: None. FLUOROSCOPY TIME: 0.1 minute Spot images saved to PACS. TECHNIQUE: Intra-operative images acquired during surgical procedure to evaluate progress. NUMBER OF IMAGES: 3 LIMITATIONS: None. FINDINGS: Fluoroscopy was provided for intraoperative procedure. Please refer to the operative repo rt for further discussion. IMPRESSION: IMAGE(S) OBTAINED DURING PROCEDURE. COMMENT: Quality ID [id number]: Final reports for procedures using fluoroscopy that document radiation exp osure indices, or exposure time and number of fluorographic images (if radiation exposure indices are not available) Please consult full operative report of the attending physician for description of the procedure. TECHNICAL DOCUMENTATION: JOB ID: [id number] [employer]- All Rights Reserved Reading location - IP/workstation name: [email or web address]
--- NOTE | 2019-04-27 14:48 | RADIOLOGY REPORT (SQ) ---
EXAM DESCRIPTION: HIP IN OPERATING RM; NO CHG FLUORO COMPLETED DATE/TIME: 04/27/2019 2:40 pm REASON FOR STUDY: LEFT HIP ARTHROPLASTY ASST WITH FLUORO IN OR M16.11 UNILATERAL PRIMARY OSTEOARTHR ITIS, RIGHT HIP M16.12 UNILATERAL PRIMARY OSTEOARTHRITIS, LEFT HIP COMPARISON: None. FLUOROSCOPY TIME: 0.1 minute Spot images saved to PACS. TECHNIQUE: Intra-operative images acquired during surgical procedure to evaluate progress. NUMBER OF IMAGES: 3 LIMITATIONS: None. FINDINGS: Fluoroscopy was provided for intraoperative procedure. Please refer to the operative repo rt for further discussion. IMPRESSION: IMAGE(S) OBTAINED DURING PROCEDURE. COMMENT: Quality ID [id number]: Final reports for procedures using fluoroscopy that document radiation exp osure indices, or exposure time and number of fluorographic images (if radiation exposure indices are not available) Please consult full operative report of the attending physician for description of the procedure. TECHNICAL DOCUMENTATION: JOB ID: [id number] [employer]- All Rights Reserved Reading location - IP/workstation name: [email or web address]
[2019-04-27] MEDS: CEFAZOLIN SODIUM 2 GM in DEXTROSE 5%-WATER 100 ML IV SCH (17:13)
--- NOTE | 2019-04-27 18:39 | PDOC PROGRESS REPORT ---
Subjective Progress Note for:: 04/27/19 - 799 Subjective:: Patient is doing very well this morning. He reports improved pain control. He reports being able to ambulate well its 900 feetaccording to him. Otherwise he is doing well with no acute events and is ready for surgery today. Reason For Visit: UNILATERAL PRIMARY OSTEOARTHRITIS, RIGHT HIP Physical Exam Vital Signs: Temp Pulse Resp BP Pulse Ox 97.4 F 81 14 100/80 97 04/27/19 15:41 04/27/19 15:41 04/27/19 15:41 04/27/19 15:41 04/27/19 15:41 Intake & Output 04/26/19 04/27/19 04/28/19 06:59 06:59 06:59 Intake Total 3290 2340 3700 Output Total 1175 400 500 Balance 211 1940 3200 Weight 78.9 kg Physical Exam: right lower extremity when does well dressed. Theres no signs of inflammation or overt swelling over what would be expected his [place] and [place] attacked to the nursery and has for motor function. Apartments are soft pulses are 2+. he is alert and oriented times three, has unlabored breathing, and has a regular pulse. Results Laboratory Results: 04/26/19 08:05 04/26/19 08:05 Impressions: Fluoroscopy 04/27/19 00:00 IMPRESSION: IMAGE(S) OBTAINED DURING PROCEDURE. Hip X-Ray 04/27/19 00:00 IMPRESSION: IMAGE(S) OBTAINED DURING PROCEDURE. Pelvis X-Ray 04/27/19 00:00 IMPRESSION: SATISFACTORY POSTOPERATIVE PELVIS. Assessment & Plan - Diagnosis (1) Avascular necrosis of bones of both hips Is this a current diagnosis for this admission?: Yes Plan: Will proceed with the right hip plan as prescribed on yesterdays note, additionally we will proceed with surgery of the left hip today.further plans to be determined on his postoperative evaluation. (2) History of total right hip arthroplasty Is this a current diagnosis for this admission?: Yes - Time Time Spent with patient: Less than 15 minutes
[2019-04-27] MEDS ORDERED: RINGERS SOLUTION,LACTATED 500 ML IV ONE (19:15)
[2019-04-27] MEDS: ATORVASTATIN CALCIUM 80 MG TABLET PO SCH (21:29)
[2019-04-28] MEDS: TRAZODONE HCL 50 MG TABLET PO PRN ×2 (00:01→21:40)
[2019-04-28] MEDS: KETOROLAC TROMETHAMINE INJ/PF 30 MG/1 ML SDV IV SCH ×2 (06:02→14:42)
[2019-04-28] MEDS: ACETAMINOPHEN 325 MG TABLET PO SCH ×3 (06:02→21:38)
[2019-04-28] MEDS: CEFAZOLIN SODIUM 2 GM in DEXTROSE 5%-WATER 100 ML IV SCH (06:02)
[2019-04-28] MEDS: HYDROMORPHONE HCL 2 MG TABLET PO PRN ×3 (06:03→21:40)
[2019-04-28 06:28] LABS: HEMATOCRIT 23.9 % (37.9-51.0); MEAN CORPUSCULAR HEMOGLOBIN 28.6 pg (27.0-33.4); MEAN CORPUSCULAR HGB CONC 33.8 g/dL (32.0-36.0); MEAN CORPUSCULAR VOLUME 85 fl (80-97); PLATELET COUNT 192 10^3/uL (150-450); RED BLOOD COUNT 2.81 10^6/uL (4.35-5.55); WHITE BLOOD COUNT 6.4 10^3/uL (4.0-10.5)
[2019-04-28 06:32] LABS: HEMOGLOBIN 8.1 g/dL (13.5-17.0)
--- NOTE | 2019-04-28 08:40 | PDOC PROGRESS REPORT ---
Subjective Progress Note for:: 04/28/19 Subjective:: The patient is doing well this morning. He does report some pain overnight however this is been addressed. We discussed pain treatment at length this morning including multimodal pain medications. Otherwise he has no new complaints he has no complaints of paresthesia or loss of motor function in the left lower extremity or right lower extremity at this point. Reason For Visit: UNILATERAL PRIMARY OSTEOARTHRITIS, RIGHT HIP Physical Exam Vital Signs: Temp Pulse Resp BP Pulse Ox 99.6 F 85 16 108/59 L 94 04/27/19 23:48 04/27/19 23:48 04/27/19 23:48 04/27/19 23:48 04/27/19 23:48 Intake & Output 04/27/19 04/28/19 04/29/19 06:59 06:59 06:59 Intake Total 2340 5077 1100 Output Total 400 500 Balance 1940 4577 1100 Weight 78.9 kg 78.4 kg Physical Exam: General appearance: PRESENT: no acute distress, cooperative, well-nourished Head exam: PRESENT: atraumatic, normocephalic Eye exam: PRESENT: EOMI Ear exam: PRESENT: normal external ear exam Mouth exam: PRESENT: neck supple Neck exam: ABSENT: tracheal deviation Respiratory exam: PRESENT: symmetrical, unlabored. ABSENT: accessory muscle use, wheezes Pulses: PRESENT: normal radial pulses, normal dorsalis pedis pul Vascular exam: PRESENT: normal capillary refill GI/Abdominal exam: ABSENT: distended, firm Extremities exam: PRESENT: full ROM of bilateral shoulders, elbows wrists, knees, hips and ankles without pain Musculoskeletal exam: PRESENT: full ROM, normal inspection of all 4 extremities aside from that noted below. Neurological exam: PRESENT: alert, awake, oriented to person, oriented to place, oriented to time Psychiatric exam: PRESENT: appropriate affect. ABSENT: agitated Focused psych exam: ABSENT: catatonic Skin exam: PRESENT: intact. ABSENT: dry All as above aside from that noted in the HPI and the following: RLE -Pulses 2+ distally -Compartments soft -Wound clean dry and intact no drainage in appropriate swelling for postop day -Sensation grossly intact to L3-4-5 S1 -Motor grossly intact to EHL TA gastroc and quad - Able to perform quad extension and elevate heel off of bed. LLE -Pulses 2+ distally -Compartments soft -Wound clean dry and intact no drainage in appropriate swelling for postop day -Sensation grossly intact to L3-4-5 S1 -Motor grossly intact to EHL TA gastroc and quad - Able to perform quad extension and elevate heel off of bed. Results Laboratory Results: 04/28/19 05:30 04/26/19 08:05 04/28/19 05:30 WBC 6.4 RBC 2.81 L Hgb 8.1 L D Hct 23.9 L MCV 85 MCH 28.6 MCHC 33.8 RDW 14.0 Plt Count 192 Impressions: Fluoroscopy 04/27/19 00:00 IMPRESSION: IMAGE(S) OBTAINED DURING PROCEDURE. Hip X-Ray 04/27/19 00:00 IMPRESSION: IMAGE(S) OBTAINED DURING PROCEDURE. Pelvis X-Ray 04/27/19 00:00 IMPRESSION: SATISFACTORY POSTOPERATIVE PELVIS. Assessment & Plan - Diagnosis (1) Avascular necrosis of bones of both hips Is this a current diagnosis for this admission?: Yes Plan: Patient is status post staged bilateral total hip arthroplasties. -He is on aspirin daily for DVT prophylaxis for 6 weeks. -Been given multimodal pain management prescriptions from the clinic. He does not need new prescriptions for discharge. - We will be evaluating his symptoms tomorrow and potentially discharging to home -He does have asymptomatic postoperative anemia, and as long as he has no further symptoms or signs on evaluation tomorrow he will be able to be discharged home. -He will be full weightbearing on the right lower extremity 10% weightbearing on the left lower extremity (2) History of total right hip arthroplasty Is this a current diagnosis for this admission?: Yes - Time Time Spent with patient: 25-34 minutes
[2019-04-28] MEDS: CELECOXIB 200 MG CAPSULE PO SCH (10:20)
[2019-04-28] MEDS: POLYETHYLENE GLYCOL 3350 POWDER 17 GM/1 PACKET PO SCH (10:20)
[2019-04-28] MEDS: FERROUS SULFATE 325 MG TABLET PO SCH ×2 (10:21→17:56)
[2019-04-28] MEDS: GABAPENTIN 100 MG CAPSULE PO SCH ×2 (10:21→21:39)
[2019-04-28] MEDS: ASPIRIN 325 MG TABLET PO SCH (10:21)
[2019-04-28] MEDS: BUPROPION HCL 75 MG TABLET PO SCH (10:21)
[2019-04-28] MEDS: CHOLECALCIFEROL (D3) 1,000 UNIT (25 MCG) TABLET PO SCH (10:21)
--- NOTE | 2019-04-28 10:35 | PDOC PROGRESS REPORT ---
Subjective Progress Note for:: 04/28/19 Reason For Visit: UNILATERAL PRIMARY OSTEOARTHRITIS, RIGHT HIP 04/28/2019 Patient being seen for medical management status post bilateral hip arthroplasty secondary to AVN Physical Exam Vital Signs: Temp Pulse Resp BP Pulse Ox 99.6 F 85 16 108/59 L 94 04/27/19 23:48 04/27/19 23:48 04/27/19 23:48 04/27/19 23:48 04/27/19 23:48 Intake & Output 04/27/19 04/28/19 04/29/19 06:59 06:59 06:59 Intake Total 2340 5077 1100 Output Total 400 500 Balance 1940 4577 1100 Weight 78.9 kg 78.4 kg General appearance: PRESENT: no acute distress Respiratory exam: PRESENT: clear to auscultation trip. ABSENT: rales, rhonchi, wheezes Cardiovascular exam: PRESENT: RRR. ABSENT: diastolic murmur, rubs, systolic m urmur Extremities exam: PRESENT: other - Orthopedics will examine Neurological exam: PRESENT: other - Per orthopedics Psychiatric exam: PRESENT: appropriate affect, normal mood. ABSENT: homicidal ideation, suicidal ideation Results Laboratory Results: 04/28/19 05:30 04/26/19 08:05 04/28/19 05:30 WBC 6.4 RBC 2.81 L Hgb 8.1 L D Hct 23.9 L MCV 85 MCH 28.6 MCHC 33.8 RDW 14.0 Plt Count 192 Impressions: Fluoroscopy 04/27/19 00:00 IMPRESSION: IMAGE(S) OBTAINED DURING PROCEDURE. Hip X-Ray 04/27/19 00:00 IMPRESSION: IMAGE(S) OBTAINED DURING PROCEDURE. Pelvis X-Ray 04/27/19 00:00 IMPRESSION: SATISFACTORY POSTOPERATIVE PELVIS. Assessment and Plan - Diagnosis (1) Avascular necrosis of bones of both hips Is this a current diagnosis for this admission?: Yes (2) History of total right hip arthroplasty Is this a current diagnosis for this admission?: Yes (3) Mixed anxiety and depressive disorder Is this a current diagnosis for this admission?: Yes (4) Hyperlipidemia Is this a current diagnosis for this admission?: Yes (5) Anemia Is this a current diagnosis for this admission?: Yes - Plan Summary Summary: 04/25/2019 I have ordered his medications for anxiety and depression to be given, as these medicines should not be stopped abruptly. And I do not think they will interfere with his surgical care. I did hold his pain medications as well as his Flomax, as I think the surgeon should treat his pain and add as needed basis, and temporarily we can control his blood pressure with the PRN dosage of hydralazine. I have also held his nonsteroidal anti-inflammatory drugs due to the slight chance of increased bleeding postop. I will prophylactically add a insulin sliding scale regimen as well as a blood pressure parameter regimen. Thank you for this consult 04/26/2019 Patient is medically stable temperature 98.1 pulse of 80 blood pressure 101/61 O2 sat 96% on room air Pain this morning is a 2/5. Had some postoperative pain last night as to be expected but this is being managed Labs all appear stable Anticipate no delays with surgery tomorrow 04/27/2019 Vital signs were stable throughout the night Patient's CBC and chemistry panel are normal Will follow patient postop for any changes 04/28/2019 Patient vital signs are stable, temp this am 97.6, bp 111/80, pulse earlier was 111 and 1 hour later now 85 O2 sat 97% on RA On admission patient's hemoglobin was 12 hematocrit 35.5, is drifted down to 8.1 and 23.9. Patient however is not symptomatic at all. Will probably self- correct with normal diet and a short course of iron sulfate. Would not recommend transfusion at this point. He has had 2 major surgical procedures in the last 8 hours, and lab values are not unexpected Renal function normal Anticipate discharge tomorrow per orthopedics - Time Time Spent with patient: 15-24 minutes
[2019-04-28] MEDS: ATORVASTATIN CALCIUM 80 MG TABLET PO SCH (21:39)
[2019-04-29 00:10] VITALS: BP 106/54
[2019-04-29] MEDS: ACETAMINOPHEN 325 MG TABLET PO SCH (05:03)
[2019-04-29] MEDS: HYDROMORPHONE HCL 2 MG TABLET PO PRN ×2 (05:04→08:57)
--- NOTE | 2019-04-29 07:31 | PDOC DISCHARGE SUMMARY ---
Impression - Admit/DC Date/PCP Admission Date/Primary Care Provider: 04/25/19 05:30 CHAYO LUNA MD Discharge Date: 04/29/19 - Discharge Diagnosis (1) Avascular necrosis of bones of both hips Is this a current diagnosis for this admission?: Yes (2) History of total right hip arthroplasty Is this a current diagnosis for this admission?: Yes - Assessment Summary: 04/25/2019 I have ordered his medications for anxiety and depression to be given, as these medicines should not be stopped abruptly. And I do not think they will interfere with his surgical care. I did hold his pain medications as well as his Flomax, as I think the surgeon should treat his pain and add as needed basis, and temporarily we can control his blood pressure with the PRN dosage of hydralazine. I have also held his nonsteroidal anti-inflammatory drugs due to the slight chance of increased bleeding postop. I will prophylactically add a insulin sliding scale regimen as well as a blood pressure parameter regimen. Thank you for this consult 04/26/2019 Patient is medically stable temperature 98.1 pulse of 80 blood pressure 101/61 O2 sat 96% on room air Pain this morning is a 2/5. Had some postoperative pain last night as to be expected but this is being managed Labs all appear stable Anticipate no delays with surgery tomorrow 04/27/2019 Vital signs were stable throughout the night Patient's CBC and chemistry panel are normal Will follow patient postop for any changes 04/28/2019 Patient vital signs are stable, temp this am 97.6, bp 111/80, pulse earlier was 111 and 1 hour later now 85 O2 sat 97% on RA On admission patient's hemoglobin was 12 hematocrit 35.5, is drifted down to 8.1 and 23.9. Patient however is not symptomatic at all. Will probably self- correct with normal diet and a short course of iron sulfate. Would not recommend transfusion at this point. He has had 2 major surgical procedures in the last 48 hours, and lab values are not unexpected Renal function normal Anticipate discharge tomorrow per orthopedics Mr. Corley is a very pleasant 58-year-old male who presented to my clinic with chronic bilateral hip pain that came on relatively acutely over the last 6 months due to progressive avascular necrosis of bilateral hips. After thorough work-up and attempts at conservative treatment including activity modification and [id number] pain medication, they were having severe difficulty with ambulation and was over the counter pain medication for daily activity. They found the pain debilitating and decreasing thier quality of life as they were unable to perform activities of daily living such as ambulating short distances and getting in and out of the car. He was progressively dependent on assistive devices, and was at this point relinquish to a walker but feeling he may progress to a wheelchair shortly if he did not have intervention. After a thorough work-up including x-rays that demonstrated avascular necrosis of bilateral hips with early collapse. After discussing risks and benefits and other treatment options, the patient elected to proceed with a bilateral total hip arthroplasty. They were brought to the operating room on 04/25/2019 and subsequently on 04/27/2019 and underwent a bilateral total hip arthroplasties first the right followed by the left and tolerated procedure very well however unfortunately this sustained an intraoperative left femur fracture that was stabilized intraoperatively. Overall he is doing very well but will need to continue to protect his left hip until it heals. They were then admitted to the hospital floor for postoperative medical management, monitoring, and pain control. On postoperative day #1 they were ambulating well with physical therapy, walking long distances after his right total hip. After the second hip he was still doing excellent however due to the complication and the subsequent surgery we kept him for 1 more night to evaluate his symptoms due to acute blood loss anemia. On postoperative day #1 following his left total hip he had an hemoglobin of 8.1 however he continues to have no symptoms no lightheadedness no palpitations and his vitals are well controlled.. They were discharged home on 04/29/2019. They had no acute medical events or complications over the course of their stay. All detailed instructions and prescriptions were provided to the patient prior to admission on the year prior office visit. - Additional Information Resuscitation Status: Full Code Discharge Diet: As Tolerated Discharge Activity: Activity As Tolerated, No Driving, No Lifting/Push/Pulling, Slowly Increase Activity, Walk Frequently, Other - 10% weight bearing left lower extremity Referrals: LAUREN DESOUZA JR, DO [ACTIVE PROVISIONAL STAFF] - Home Medications: Albuterol Sulfate [Proair HFA Inhalation Aerosol 8.5 gm MDI] 2 puff IN QIDP PRN 04/18/19 Alprazolam 1 mg PO Q8HP PRN 04/18/19 Atorvastatin Calcium [Lipitor 80 mg Tablet] 80 mg PO DAILY 04/18/19 Bupropion HCl [Wellbutrin Xl 300mg 24hr Tablet] 300 mg PO DAILY 04/18/19 Montelukast Sodium [Singulair] 10 mg PO HSP PRN 04/18/19 Tamsulosin HCl [Flomax] 0.4 mg PO DAILYP PRN 04/18/19 Trazodone HCl 300 mg PO HSP PRN 04/18/19 Buprenorphine HCl [Belbuca] 300 mcg BUCCAL DAILY 04/19/19 Cholecalciferol (Vitamin D3) [Vitamin D3 2000 unit Tablet] 2,000 unit PO DAILY 04/19/19 Clobetasol Propionate [Temovate 0.05% Cream 15 gm] 1 dose TOP BID 04/19/19 Lidocaine [Lidoderm 5% (700 mg) Transdermal Patch] 1 patch TOP DAILYP PRN 04/19/19 Mometasone Furoate [Nasonex] 2 spray NAREB DAILYP PRN 04/19/19 Naltrexone HCl/Bupropion HCl [Contrave ER 8-90 mg Tablet] 8 - 90 mg PO DAILY 04/19/19 [place]-3 Fatty Acids/Fish Oil [Fish Oil 1,000 mg Capsule] 1,000 mg PO DAILY 04/19/19 Tadalafil [Cialis] 5 mg PO DAILY 04/19/19 Tapentadol HCl [Nucynta] 100 mg PO Q8HP PRN 04/25/19 Tramadol HCl [Ultram 50 mg Tablet] 50 mg PO Q8HP PRN 04/25/19 Bupropion HCl [Wellbutrin 75 mg Tablet] 150 mg PO DAILY tablet 04/29/19 Celecoxib [Celebrex 200 mg Capsule] 200 mg PO DAILY capsule 04/29/19 Diphenhydramine HCl [Benadryl 25 mg Capsule] 25 mg PO Q6HP PRN capsule 04/29/19 Docusate Sodium [Colace 100 mg Capsule] 100 mg PO TIDP PRN capsule 04/29/19 Ferrous Sulfate [Feosol 325 mg Tablet] 325 mg PO BID tablet 04/29/19 Gabapentin [Neurontin 100 mg Capsule] 100 mg PO Q12 capsule 04/29/19 Hydromorphone HCl [Dilaudid 2 mg Tablet] 2 mg PO Q4HP PRN tablet 04/29/19 Hydromorphone HCl [Dilaudid 2 mg Tablet] 4 mg PO Q4HP PRN tablet 04/29/19 Mag Hydrox/Al Hydrox/Simeth [Maalox Plus Susp 30 Udcup] 30 ml PO Q6HP PRN udc 04/29/19 Tramadol HCl [Ultram 50 mg Tablet] 50 mg PO Q4HP PRN tablet 04/29/19 History of Present Illiness History of Present Illness: JEFRY CORLEY is a 58 year old male Physical Exam Vital Signs: Temp Pulse Resp BP Pulse Ox 99.1 F 83 16 106/54 L 96 04/29/19 00:00 04/29/19 00:00 04/29/19 00:00 04/29/19 00:00 04/29/19 00:00 Intake & Output 04/28/19 04/29/19 04/30/19 06:59 06:59 06:59 Intake Total 5077 1979 Output Total 500 Balance 4577 1979 Weight 78.4 kg 78.1 kg Results Laboratory Results: WBC 6.4 10^3/uL (4.0-10.5) 04/28/19 05:30 RBC 2.81 10^6/uL (4.35-5.55) L 04/28/19 05:30 Hgb 8.1 g/dL (13.5-17.0) L D 04/28/19 05:30 Hct 23.9 % (37.9-51.0) L 04/28/19 05:30 MCV 85 fl (80-97) 04/28/19 05:30 MCH 28.6 pg (27.0-33.4) 04/28/19 05:30 MCHC 33.8 g/dL (32.0-36.0) 04/28/19 05:30 RDW 14.0 % (11.5-14.0) 04/28/19 05:30 Plt Count 192 10^3/uL (150-450) 04/28/19 05:30 Lymph % (Auto) 14.4 % (13-45) 04/26/19 08:05 Elliott % (Auto) 7.4 % (3-13) 04/26/19 08:05 Eos % (Auto) 0.1 % (0-6) 04/26/19 08:05 Baso % (Auto) 0.4 % (0-2) 04/26/19 08:05 Absolute Neuts (auto) 7.9 10^3/uL (1.7-8.2) 04/26/19 08:05 Absolute Lymphs (auto) 1.5 10^3/uL (0.5-4.7) 04/26/19 08:05 Absolute Monos (auto) 0.8 10^3/uL (0.1-1.4) 04/26/19 08:05 Absolute Eos (auto) 0.0 10^3/uL (0.0-0.6) 04/26/19 08:05 Absolute Basos (auto) 0.0 10^3/uL (0.0-0.2) 04/26/19 08:05 Seg Neutrophils % 77.7 % (42-78) 04/26/19 08:05 Sodium 138.3 mmol/L (137-145) 04/26/19 08:05 Potassium 4.3 mmol/L (3.6-5.0) 04/26/19 08:05 Chloride 102 mmol/L (98-107) 04/26/19 08:05 Carbon Dioxide 28 mmol/L (22-30) 04/26/19 08:05 Anion Gap 8 (5-19) 04/26/19 08:05 BUN 11 mg/dL (7-20) 04/26/19 08:05 Creatinine 0.84 mg/dL (0.52-1.25) 04/26/19 08:05 Est GFR ( Amer) > 60 (>60) 04/26/19 08:05 Est GFR (MDRD) Non-Af > 60 (>60) 04/26/19 08:05 Glucose 129 mg/dL (75-110) H 04/26/19 08:05 POC Glucose 142 mg/dL (70-110) H 04/26/19 06:22 Calcium 9.1 mg/dL (8.4-10.2) 04/26/19 08:05 Total Bilirubin 0.3 mg/dL (0.2-1.3) 04/26/19 08:05 Direct Bilirubin 0.1 mg/dL (0.0-0.4) 04/26/19 08:05 Neonat Total Bilirubin Not Reportable 04/26/19 08:05 Neonat Direct Bilirubin Not Reportable 04/26/19 08:05 Neonat Indirect Bili Not Reportable 04/26/19 08:05 AST 22 U/L (17-59) 04/26/19 08:05 ALT 19 U/L (<50) 04/26/19 08:05 Alkaline Phosphatase 73 U/L (38-126) 04/26/19 08:05 Total Protein 5.9 g/dL (6.3-8.2) L 04/26/19 08:05 Albumin 3.1 g/dL (3.5-5.0) L 04/26/19 08:05 Blood Type A NEGATIVE 04/25/19 06:15 Antibody Screen NEGATIVE 04/25/19 06:15 Impressions: Fluoroscopy 04/25/19 00:00 IMPRESSION: IMAGE(S) OBTAINED DURING PROCEDURE. Hip X-Ray 04/25/19 00:00 IMPRESSION: IMAGE(S) OBTAINED DURING PROCEDURE. Pelvis X-Ray 04/25/19 00:00 IMPRESSION: Status post right ABHI with expected postoperative findings as detailed above. Fluoroscopy 04/27/19 00:00 IMPRESSION: IMAGE(S) OBTAINED DURING PROCEDURE. Hip X-Ray 04/27/19 00:00 IMPRESSION: IMAGE(S) OBTAINED DURING PROCEDURE. Pelvis X-Ray 04/27/19 00:00 IMPRESSION: SATISFACTORY POSTOPERATIVE PELVIS. Stroke Is this a Stroke Patient?: No Acute Heart Failure - Is this a Heart Failure Patient?: No
== END 2019-04-29 09:14 | disposition home health service (06) | DRG 462 ==
LOC: INOR 05:30 → 4N 10:51
PROVIDERS: ADMIT Orthopaedic Surgery; ATTEND Orthopaedic Surgery
PROC: 0SR90JZ Replacement of Right Hip Joint with Synthetic Substitute, Open Approach (ICD-10-PCS; principal; 2019-04-25 07:30)
PROC: 0SRB0JZ Replacement of Left Hip Joint with Synthetic Substitute, Open Approach (ICD-10-PCS; 2019-04-27)
PROC: 0QS704Z Reposition Left Upper Femur with Internal Fixation Device, Open Approach (ICD-10-PCS; 2019-04-27)
DX: M87.852 Other osteonecrosis, left femur (principal); M96.89 Other intraoperative and postprocedural complications and disorders of the musculoskeletal system; D62 Acute posthemorrhagic anemia; Y79.2 Prosthetic and other implants, materials and accessory orthopedic devices associated with adverse incidents; Y92.234 Operating room of hospital as the place of occurrence of the external cause; M87.851 Other osteonecrosis, right femur; E78.5 Hyperlipidemia, unspecified; D64.9 Anemia, unspecified; J44.9 Chronic obstructive pulmonary disease, unspecified; K21.9 Gastro-esophageal reflux disease without esophagitis; F41.8 Other specified anxiety disorders; Z79.891 Long term (current) use of opiate analgesic; Z79.51 Long term (current) use of inhaled steroids; Z79.899 Other long term (current) drug therapy
CPT/HCPCS: 01214; 36415; 72170; 80053; 82962; 85025; 85027; 86850; 86900; 86901; C1887; J0171; J0690; J1100; J1170; J1580; J1885; J2250; J2270; J2370; J2405; J2704; J3010; J3370; J3490; J7030; J7060; J7120